=== PATIENT | female | born 1945 | race Caucasian/White ===

== ENCOUNTER 2017-05-12 14:39 | Outpatient (CLI) | payer MEDICARE, OTHER | END 2017-05-12 14:40 | disposition home or self-care (01) | LOC: SC 14:39 | PROVIDERS: ATTEND Nurse Practitioner Family | DX: G47.33 Obstructive sleep apnea (adult) (pediatric) (principal) | CPT/HCPCS: 99204; G0463; 99212 ==

== ENCOUNTER 2017-07-15 14:09 | Outpatient (CLI) | payer MEDICARE, OTHER | END 2017-07-15 14:10 | disposition home or self-care (01) | LOC: SC 14:09 | PROVIDERS: ATTEND Nurse Practitioner Family | DX: G47.33 Obstructive sleep apnea (adult) (pediatric) (principal) | CPT/HCPCS: 99213; G0463; 99212 ==

== ENCOUNTER 2017-09-16 13:01 | Outpatient (CLI) | payer MEDICARE, OTHER | END 2017-09-16 13:02 | disposition home or self-care (01) | LOC: SC 13:01 | PROVIDERS: ATTEND Nurse Practitioner Family | DX: G47.33 Obstructive sleep apnea (adult) (pediatric) (principal) | CPT/HCPCS: 99214; G0463; 99212 ==

== ENCOUNTER 2018-10-06 13:01 | Outpatient (CLI) | payer MEDICARE, OTHER | END 2018-10-06 13:02 | disposition home or self-care (01) | LOC: SC 13:01 | PROVIDERS: ATTEND Nurse Practitioner Family | DX: G47.33 Obstructive sleep apnea (adult) (pediatric) (principal); I10 Essential (primary) hypertension | CPT/HCPCS: 99214; G0463; 99212 ==